=== PATIENT | female | born 1960 | race Caucasian/White ===

== ENCOUNTER → 2016-07-13 | Day surgery (SDC) | payer OTHER ==
[~2016-07-13] VITALS: Ht 167.6 cm; Wt 96.0 kg
[~2016-07-13] MED LIST: *MEPERIDINE 25 MG INJ VIAL PERIprocedural Use ONLY ONE; *morphine SULFATE 8 MG/ML PERIprocedure ONLY ONE; ACETAMINOPHEN 1000 MG/100 ML VIAL IV ONE; ACETAMINOPHEN/HYDROcodone 325 MG/7.5 MG TAB PO PRN; BUPIVACAINE/EPINEPHRINE 0.25% PF 30 ML VIAL ONE; CHLORHEXIDINE GLUCONATE 4% SOLN 120 ML BTL TOP SCH; DEXAMETHASONE SOD PHOS 4 MG/ML VIAL ONE; FAMOTIDINE 20 MG/2 ML VIAL ONE; GENTAMICIN SULFATE 80 MG/2 ML VIAL ONE; HYDR-3583 PO; IBUP800T23 PO; INSULIN HUMAN REGULAR 1,000 UNITS/10 ML VIAL SQ PRN; LACTATED RINGER'S 1000 ML IV SCH; METOCLOPRAMIDE HCL 10 MG/2 ML VIAL ONE; METOPROLOL TARTRATE 25 MG TAB PO PRN; MIDAZOLAM HCL 2 MG/2 ML VIAL ONE; MORPHINE SULFATE 4 MG/ML INJ IV PUSH PRN; MORPHINE SULFATE 8 MG/ML INJ IV PUSH PRN; ONDANSETRON HCL 4 MG/2 ML VIAL IV PRN; ONDANSETRON HCL 4 MG/2 ML VIAL IV PUSH ONE; POVIDONE IODINE 7.5% SCRUB 118 ML BOTTLE TOP SCH; PROPOFOL 200 MG/20 ML AMP IV ONE; SODIUM CHLORID 0.9% 500 ML IV SCH; SODIUM CHLORIDE 0.9% FLUSH 5 ML FLUSH IVF PRN; SODIUM CHLORIDE 0.9% FLUSH 5 ML FLUSH IVF SCH; VANCOMYCIN 1000 MG/NS 250 ML (for <70 kg) IV SCH; ceFAZolin 2 GM PREMIX 50 ML IV SCH; fentaNYL CITRATE 250 MCG/5 ML AMP ONE
[2016-07-13 13:25] VITALS: BP 110/68; PULSE 84; RESP 18; TEMP 99; O2SAT 96
--- NOTE | 2016-07-13 15:28 | PD.OP ---
cc: Catrachito Argueta MD Operative Report Date of Surgery: Jul 13, 2016 Preoperative Diagnosis: Right distal radius fracture, extra-articular 2 part displaced and angulated. Right hand acute on chronic carpal tunnel syndrome. Postoperative Diagnosis: Same Procedure: Right distal radius fracture open reduction and internal fixation of two-part extra-articular fracture. Right hand open carpal tunnel release from separate incision. Anesthesia: Gen. Surgeon: Catrachito Argueta Roll Off Driver(s): ELVER Machuca The surgical procedure was assisted by my Advanced Registered Nurse Practitioner. My FISH HOUSEKEEPER presence was necessary throughout this case for the manipulation and positioning of the surgical extremity. My FISH HOUSEKEEPER was assisting me throughout the duration of this procedure. The skill set of an Advance Registered Nurse Practitioner was medically necessary to complete this procedure. During the surgical case, the manager surgical was working at the back table and the Advance Registered Nurse Practitioner was directly assisting me. Operation and Findings: Tourniquet time: 19 minutes at 250 mmHg of pressure Estimated blood loss: 5 cc The patient received intravenous vancomycin and Ancef. After the appropriate anesthesia was administered, the patient's arm was prepped and draped in the usual sterile fashion. Local anesthetic was given, and the arm was exsanguinated. The tourniquet was raised to 250 mmHg of pressure. We made a standard incision over the volar aspect of the forearm. We then dissected through the flexor carpi radialis sub- sheath. The pronator quadratus was reflected. We now visualized the distal radius fracture very well. The fracture was anatomically reduced both visually and via fluoroscopy. We provisionally held the fracture reduced and then applied a Synthes precontoured distal radius plate into the appropriate position. The plate was secured to the distal radius first with the sliding screw hole. This was then followed by locking screws distally and proximally. We took final fluoroscopic imaging of the wrist. We found no intra-articular penetration of the screws. The patient had full range of motion of the wrist with no crepitus. We turned our attention to the volar portion of the palm. Standard incision was made through a separate incision with dissection through the deep palmar fat to the deep transverse carpal ligament. We incised the ligament in the mid aspect. A Bryan elevator was used to protect the median nerve. We then completed the transection of the ligament distally and proximally. The tourniquet was released and hemostasis was achieved. The patient had a 2+ radial pulse. We irrigated the incision thoroughly. We then closed skin with 2 -0 Vicryl followed by 3-0 nylon. The arm was dressed and a volar splint was applied. The postoperative plan is to start early range of motion of the wrist. Catrachito Argueta MD Jul 13, 2016 15:27
--- NOTE | 2016-07-13 15:52 | RADRPT ---
EXAM DATE/TIME: 07/13/2016 15:09 [facility] COMPARISON: No previous studies available for comparison. INDICATIONS : ORIF right distal radius. MEDICAL HISTORY : None. SURGICAL HISTORY : None. ENCOUNTER: Initial ACUITY: 1 day PAIN SCORE: Non-responsive. LOCATION: Right distal radius. CONCLUSION: Fluoroscopic images demonstrate T-shaped compression plate along distal radius fixating fracture. Gaurav Aguirre MD on July 13, 2016 at 15:46 Board Certified Radiologist. This report was verified electronically.
[2016-07-13 17:15] VITALS: BP 146/78; PULSE 85; RESP 16; TEMP 97.7; O2SAT 98
--- NOTE | 2016-07-14 08:53 | EKG ---
Date Performed: 07/13/2016 Time Performed: 13:36:31 PTAGE: 55 years EKG: Sinus rhythm POSSIBLE RIGHT VENTRICULAR CONDUCTION DELAY BORDERLINE ECG NO PREVIOUS TRACING DOCTOR: Grant Armstrong Interpretating Date/Time 07/14/2016 08:50:02
== END | disposition home or self-care (01) ==
LOC: HSDC 12:46
PROVIDERS: ATTEND Orthopaedic Surgery
DX: S52.531A Colles' fracture of right radius, initial encounter for closed fracture (principal); G56.01 Carpal tunnel syndrome, right upper limb; R94.31 Abnormal electrocardiogram [ECG] [EKG]; W19.XXXA Unspecified fall, initial encounter; Y93.F9 Activity, other caregiving; Y92.129 Unspecified place in nursing home as the place of occurrence of the external cause; Y99.0 Civilian activity done for income or pay
CPT/HCPCS: 01810; 25607; 64721; 73100; 76000; 93005; C1713; J0131; J0690; J1100; J1580; J2175; J2250; J2270; J2405; J2765; J3010; J3370; J7050; J7120

== ENCOUNTER 2017-01-02 11:56 | Emergency (ER) | payer MEDICAID ==
[~2017-01-02] VITALS: Ht 165.1 cm; Wt 100.0 kg
[~2017-01-02 11:56] MED LIST changes: -*MEPERIDINE 25 MG INJ VIAL PERIprocedural Use ONLY ONE; -*morphine SULFATE 8 MG/ML PERIprocedure ONLY ONE; -ACETAMINOPHEN 1000 MG/100 ML VIAL IV ONE; -ACETAMINOPHEN/HYDROcodone 325 MG/7.5 MG TAB PO PRN; -BUPIVACAINE/EPINEPHRINE 0.25% PF 30 ML VIAL ONE; -CHLORHEXIDINE GLUCONATE 4% SOLN 120 ML BTL TOP SCH; -DEXAMETHASONE SOD PHOS 4 MG/ML VIAL ONE; -FAMOTIDINE 20 MG/2 ML VIAL ONE; -GENTAMICIN SULFATE 80 MG/2 ML VIAL ONE; -INSULIN HUMAN REGULAR 1,000 UNITS/10 ML VIAL SQ PRN; -LACTATED RINGER'S 1000 ML IV SCH; -METOCLOPRAMIDE HCL 10 MG/2 ML VIAL ONE; -METOPROLOL TARTRATE 25 MG TAB PO PRN; -MIDAZOLAM HCL 2 MG/2 ML VIAL ONE; -MORPHINE SULFATE 4 MG/ML INJ IV PUSH PRN; -MORPHINE SULFATE 8 MG/ML INJ IV PUSH PRN; -ONDANSETRON HCL 4 MG/2 ML VIAL IV PRN; -ONDANSETRON HCL 4 MG/2 ML VIAL IV PUSH ONE; -POVIDONE IODINE 7.5% SCRUB 118 ML BOTTLE TOP SCH; -PROPOFOL 200 MG/20 ML AMP IV ONE; -SODIUM CHLORID 0.9% 500 ML IV SCH; -SODIUM CHLORIDE 0.9% FLUSH 5 ML FLUSH IVF PRN; -SODIUM CHLORIDE 0.9% FLUSH 5 ML FLUSH IVF SCH; -VANCOMYCIN 1000 MG/NS 250 ML (for <70 kg) IV SCH; -ceFAZolin 2 GM PREMIX 50 ML IV SCH; -fentaNYL CITRATE 250 MCG/5 ML AMP ONE
[2017-01-02 11:59] VITALS: BP 132/69; PULSE 76; RESP 18; TEMP 98.6; O2SAT 98
--- NOTE | 2017-01-02 12:06 | PD ---
Physical Exam Date Seen by Provider: Jan 02, 2017 Time Seen by Provider: 12:02 Narrative 56 y/o female sent into ED by PCP for Abdominal pain and Nausea and weight loss since December 21. Vomitted once and ongoing diarrhea. Pain 5/10 but 10/10 with eating. Hx Appendectomy and Uterine CA s/p Hysterectomy. Vital signs reviewed. Patient stable. Awaiting Bed placement. Data Data Last Documented VS Vital Signs Date Time Temp Pulse Resp B/P Pulse Ox O2 Delivery O2 Flow Rate FiO2 01/02/17 11:59 98.6 76 18 132/69 98 MDM Medical Record Reviewed: Yes Supervised Visit with EMILY: Yes Condition: Stable Ilan Paige Jan 02, 2017 12:05
[2017-01-02] MEDS ORDERED: LEXA10TA PO (13:34)
--- NOTE | 2017-01-02 13:41 | PD ---
HPI Chief Complaint: Abdominal Pain Time Seen by Provider: 13:11 Travel History International Travel<30 days: No Contact w/Intl Traveler<30days: No Traveled to known affect area: No History of Present Illness HPI The patient was seen and examined in the presence of the nurse. This patient complains of upper abdominal pain for 3 weeks. She has some nausea and poor appetite. She saw her physician today who ordered outpatient labs and CT scan of the abdomen and pelvis. Patient reports that she couldn't get it scheduled for 3-4 days and her doctor told her to come to the emergency room and get it done today. Denies fever. Symptoms severity is moderate. No alleviating factors. PFSH Past Medical History Cancer: Yes (cervical ca) Cardiovascular Problems: No Diabetes: No Endocrine: No Genitourinary: No Hepatitis: No Hiatal Hernia: No Immune Disorder: No Musculoskeletal: No Neurologic: No Psychiatric: No Reproductive: No Respiratory: No Thyroid Disease: No Past Surgical History Abdominal Surgery: Yes (appy) AICD: No Appendectomy: Yes Body Medical Devices: cervical fusion Gynecologic Surgery: Yes (c section x 3, hysterectomy) Joint Replacement: No Pacemaker: No Social History Alcohol Use: No Tobacco Use: No Substance Use: No Allergies-Medications (Allergen,Severity, Reaction): Coded Allergies: Lactose (Verified Allergy, Severe, 01/02/17) Reported Meds & Prescriptions Reported Meds & Active Scripts Active Reported Lexapro (Escitalopram Oxalate) 10 Mg Tab 10 Mg PO BID Ibuprofen 800 Mg Tab 800 Mg PO Q6HR PRN Review of Systems General / Constitutional: No: Fever Eyes: No: Visual changes HENT: No: Headaches Cardiovascular: No: Chest Pain or Discomfort Respiratory: No: Shortness of Breath Gastrointestinal: Positive: Nausea, Abdominal Pain, Loss of Appetite Genitourinary: No: Dysuria Musculoskeletal: No: Pain Skin: No Rash Neurologic: No: Weakness Psychiatric: No: Depression Endocrine: No: Polydipsia Hematologic/Lymphatic: No: Easy Bruising Physical Exam Narrative GENERAL: Well-nourished, well-developed patient in no apparent distress. SKIN: Focused skin assessment reveals no rash and nodules. Skin is Warm and dry. HEAD: Atraumatic. Normocephalic. EYES: Pupils equal and round. No scleral icterus. No injection or drainage. ENT: No nasal bleeding or discharge. Mucous membranes pink and moist. NECK: Trachea midline. No JVD. CARDIOVASCULAR: Regular rate and rhythm. No murmur appreciated. RESPIRATORY: No accessory muscle use. Clear to auscultation. Breath sounds equal bilaterally. GASTROINTESTINAL: Abdomen soft, non-tender, nondistended. Hepatic and splenic margins not palpable. MUSCULOSKELETAL: No obvious deformities. No clubbing. No cyanosis. No edema. NEUROLOGICAL: Awake and alert. No obvious cranial nerve deficits. Motor grossly within normal limits. Normal speech. PSYCHIATRIC: Appropriate mood and affect; insight and judgment normal. Data Data Last Documented VS Vital Signs Date Time Temp Pulse Resp B/P Pulse Ox O2 Delivery O2 Flow Rate FiO2 01/02/17 11:59 98.6 76 18 132/69 98 Orders Complete Blood Count With Diff (01/02/17 13:34) Comprehensive Metabolic Panel (01/02/17 13:34) Lipase (01/02/17 13:34) Prothrombin Time / Inr (Pt) (01/02/17 13:34) Act Partial Throm Time (Ptt) (01/02/17 13:34) Ct Abd/Pel W Iv Contrast(Rout) (01/02/17 13:34) Iv Access Insert/Monitor (01/02/17 13:34) Ecg Monitoring (01/02/17 13:34) Oximetry (01/02/17 13:34) Sodium Chloride 0.9% Flush (Ns Flush) (01/02/17 13:45) Iohexol 350 Inj (Omnipaque 350 Inj) (01/02/17 16:02) Labs Laboratory Tests Test 01/02/17 13:42 White Blood Count 9.1 TH/MM3 Red Blood Count 4.44 MIL/MM3 Hemoglobin 13.3 GM/DL Hematocrit 39.0 % Mean Corpuscular Volume 87.8 FL Mean Corpuscular Hemoglobin 30.0 PG Mean Corpuscular Hemoglobin 34.2 % Concent Red Cell Distribution Width 14.0 % Platelet Count 285 TH/MM3 Mean Platelet Volume 7.2 FL Neutrophils (%) (Auto) 67.3 % Lymphocytes (%) (Auto) 24.5 % Monocytes (%) (Auto) 6.9 % Eosinophils (%) (Auto) 0.7 % Basophils (%) (Auto) 0.6 % Neutrophils # (Auto) 6.1 TH/MM3 Lymphocytes # (Auto) 2.2 TH/MM3 Monocytes # (Auto) 0.6 TH/MM3 Eosinophils # (Auto) 0.1 TH/MM3 Basophils # (Auto) 0.1 TH/MM3 CBC Comment DIFF FINAL Differential Comment Prothrombin Time 11.1 SEC Prothromb Time International 1.0 RATIO Ratio Activated Partial 27.3 SEC Thromboplast Time Sodium Level 138 MEQ/L Potassium Level 3.8 MEQ/L Chloride Level 101 MEQ/L Carbon Dioxide Level 29.4 MEQ/L Anion Gap 8 MEQ/L Blood Urea Nitrogen 8 MG/DL Creatinine 0.75 MG/DL Estimat Glomerular Filtration 80 ML/MIN Rate Random Glucose 98 MG/DL Calcium Level 9.3 MG/DL Total Bilirubin 0.7 MG/DL Aspartate Amino Transf 20 U/L (AST/SGOT) Alanine Aminotransferase 41 U/L (ALT/SGPT) Alkaline Phosphatase 85 U/L Total Protein 7.7 GM/DL Albumin 3.8 GM/DL Lipase 103 U/L [facility] Medical Decision Making Medical Screen Exam Complete: Yes Emergency Medical Condition: Yes Medical Record Reviewed: Yes Differential Diagnosis Cholecystitis, ileus, obstruction, colitis Narrative Course I have reviewed the patient's electronic medical record. Reviewed her physician 's recommendations. Patient has no appendix or uterus IV placed CBC is normal metabolic profile is normal LFT's are normal lipase is normal CT of abdomen and pelvis with IV contrast shows some hepatic steatosis but nothing emergent Recommend primary care follow-up. Stable for outpatient status Diagnosis Primary Impression: Abdominal pain Qualified Code: R10.10 - Pain of upper abdomen Additional Instructions: The patient was advised to follow up with their physician and return if they worsen. Med/Other Pt SpecificInfo: Other Disposition: 01 DISCHARGE HOME Condition: Stable Red Moeller MD Jan 02, 2017 13:41
[2017-01-02] MEDS ORDERED: SODIUM CHLORIDE 0.9% FLUSH 10 ML FLUSH IV FLUSH PRN (13:45)
[2017-01-02 14:06] LABS: AUTOMATED NEUTROPHIL # 6.1 TH/MM3 (1.8-7.7); BASOPHIL # 0.1 TH/MM3 (0-0.2); BASOPHIL % 0.6 % (0.0-2.0); EOSINOPHIL # 0.1 TH/MM3 (0-0.4); EOSINOPHIL % 0.7 % (0.0-4.0); HEMO FLAGS DIFF FINAL; LYMPH % 24.5 % (9.0-44.0); LYMPHOCYTE # 2.2 TH/MM3 (1.0-4.8); MEAN CELL VOLUME 87.8 FL (80.0-100.0); MEAN CORPUSCULAR HGB CONC 34.2 % (32.0-36.0); MONO % 6.9 % (0.0-8.0); NEUT % 67.3 % (16.0-70.0); PLATELET COUNT 285 TH/MM3 (150-450); RED BLOOD COUNT 4.44 MIL/MM3 (4.00-5.30); WHITE BLOOD COUNT 9.1 TH/MM3 (4.0-11.0)
[2017-01-02 14:22] LABS: APTT (PATIENT) 27.3 SEC (24.3-30.1); PROTHROMBIN TIME - PATIENT 11.1 SEC (9.8-11.6)
[2017-01-02 14:32] LABS: ALT (GPT) 41 U/L (10-53); ANION GAP 8 MEQ/L (5-15); AST (GOT) 20 U/L (15-37); BICARBONATE 29.4 MEQ/L (21.0-32.0); BLOOD UREA NITROGEN 8 MG/DL (7-18); CHLORIDE 101 MEQ/L (98-107); GLOMERULAR FILTRATION RATE 80 ML/MIN (>89); POTASSIUM 3.8 MEQ/L (3.5-5.1); SODIUM (NA) 138 MEQ/L (136-145)
[2017-01-02 14:34] LABS: ALKALINE PHOSPHATASE 85 U/L (45-117); TOTAL BILIRUBIN ADULT 0.7 MG/DL (0.2-1.0)
[2017-01-02] MEDS ORDERED: IOHEXOL 350 MG/ML 10 ML VIAL (for RAD DIAG) IV ONE (16:02)
--- NOTE | 2017-01-02 16:41 | RADRPT ---
EXAM DATE/TIME: 01/02/2017 15:50 [facility] COMPARISON: No previous studies available for comparison. INDICATIONS : Abdominal cramping, nausea, vomiting, watery diarrhea. IV CONTRAST: 97 cc Omnipaque 350 (iohexol) IV ORAL CONTRAST: No oral contrast ingested. RADIATION DOSE: 16.49 CTDIvol (mGy) MEDICAL HISTORY : cervical cancer SURGICAL HISTORY : Appendectomy. Hysterectomy. ENCOUNTER: Initial ACUITY: 2 weeks PAIN SCALE: 4/10 LOCATION: abdomen TECHNIQUE: Volumetric scanning of the abdomen and pelvis was performed. Using automated exposure control and ad justment of the mA and/or kV according to patient size, radiation dose was kept as low as reasonably achievable to obtain optimal diagnostic quality images. DICOM format image data is available electro nically for review and comparison. FINDINGS: LOWER LUNGS: The visualized lower lungs are clear. LIVER: The liver is diffusely hypodense. Thereoccupying lesions. There is no evidence of calcified gallstone s. SPLEEN: Normal size without lesion. PANCREAS: Within normal limits. KIDNEYS: Normal in size and shape. There is no mass, stone or hydronephrosis. ADRENAL GLANDS: Within normal limits. VASCULAR: There is no aortic aneurysm. BOWEL/MESENTERY: The stomach, small bowel, and colon demonstrate no acute abnormality. There is no free intraperitone al air or fluid. ABDOMINAL WALL: Within normal limits. RETROPERITONEUM: There is no lymphadenopathy. BLADDER: No wall thickening or mass. REPRODUCTIVE: Within normal limits. INGUINAL: There is no lymphadenopathy or hernia. MUSCULOSKELETAL: Within normal limits for patient age. CONCLUSION: 1. Hepatic steatosis. 2. No specific evidence of inflammatory bowel disease, ileus or perforation. 3. Otherwise unremarkable exam. Reece Khan MD on January 02, 2017 at 16:36 Board Certified Radiologist. This report was verified electronically.
== END 2017-01-02 17:10 | disposition home or self-care (01) ==
LOC: NEPD 11:56
DX: R10.10 Upper abdominal pain, unspecified (principal); K76.0 Fatty (change of) liver, not elsewhere classified; R11.0 Nausea; R63.0 Anorexia; Z85.41 Personal history of malignant neoplasm of cervix uteri; Z79.899 Other long term (current) drug therapy
CPT/HCPCS: 74177; 80053; 83690; 85025; 85610; 85730; 99285; Q9967